=== PATIENT | male | born 1995 | race Caucasian/White ===

== ENCOUNTER 2020-08-20 10:54 | Emergency (ER) | payer OTHER ==
[~2020-08-20 10:54] MED LIST: SKELAXIN800 MG PO
[2020-08-20] MEDS ORDERED: BACTRIM DS TAB1 EACH PO (11:34)
== END 2020-08-20 12:10 | disposition home or self-care (01) ==
LOC: FER 10:54
DX: S61.011A Laceration without foreign body of right thumb without damage to nail, initial encounter (principal); W45.8XXA Other foreign body or object entering through skin, initial encounter; Y92.89 Other specified places as the place of occurrence of the external cause; Y99.0 Civilian activity done for income or pay

== ENCOUNTER 2020-09-01 15:28 | Emergency (ER) | payer OTHER ==
[~2020-09-01 15:28] MED LIST changes: +BACTRIM DS TAB1 EACH PO
== END 2020-09-01 17:16 | disposition home or self-care (01) ==
LOC: FER 15:28
DX: S61.411D Laceration without foreign body of right hand, subsequent encounter (principal); X58.XXXD Exposure to other specified factors, subsequent encounter
CPT/HCPCS: 99281

== ENCOUNTER 2020-12-28 14:27 | Emergency (ER) | payer OTHER ==
[2020-12-28 16:45] LABS: BASOPHIL 0.4 % (0-2); EOSINOPHIL 4.5 % (0-5); HCT 45.3 % (42.0-52.0); HGB 14.9 g/dl (13.2-18.0); LYMPHOCYTE 25.1 % (15-48); MCHC 32.9 g/dL (32.0-36.0); MCV 91.1 fL (78.0-100.0); MONOCYTE 9.3 % (0-12); MPV 8.7 fL (6.0-9.5); NEUTROPHIL 60.3 % (41-80); NRBC 0; PLT 190 K/uL (150-400); RBC 4.97 M/uL (4.70-6.00); RDW 13.6 % (11.5-14.0); WBC 5.6 K/uL (4.0-10.5)
[2020-12-28 17:08] LABS: ALBUMIN 3.7 g/dL (3.4-5.0); BILIRUBIN - TOTAL 0.6 mg/dL (0.2-1.0); BUN/CREAT RATIO (CALC) 9.7 RATIO; CREATININE 0.93 mg/dL (0.67-1.17); GLOBULIN (CALCULATION) 3.1 g/dL; POTASSIUM 4.4 mmol/L (3.5-5.1); TOTAL PROTEIN 6.8 g/dL (6.4-8.2)
[2020-12-28] MEDS ORDERED: MEDROL 4MG DOSEP4 MG PO (18:06)
[2020-12-28] MEDS ORDERED: ZYRTEC10 M3 PO (18:06)
[2020-12-28] MEDS ORDERED: KEFLEX750 MG PO (18:06)
== END 2020-12-28 18:13 | disposition home or self-care (01) ==
LOC: FER 14:27
PROVIDERS: Emergency Medicine
DX: T78.3XXA Angioneurotic edema, initial encounter (principal)
CPT/HCPCS: 36415; 70491; 80053; 85025; 87880; 94640; J1100; Q9967

== ENCOUNTER 2021-05-27 11:50 | Emergency (ER) | payer OTHER ==
[~2021-05-27 11:50] MED LIST changes: +KEFLEX750 MG PO; +MEDROL 4MG DOSEP4 MG PO; +ZYRTEC10 M3 PO
[2021-05-27 13:50] LABS: CORONAVIRUS 2019 SARS-COV-2 NEGATIVE (NEGATIVE); INFLUENZA A NAA NEGATIVE (NEGATIVE)
== END 2021-05-27 14:00 | disposition home or self-care (01) ==
LOC: FER 11:50
PROVIDERS: Nurse Practitioner Family
DX: B34.9 Viral infection, unspecified (principal); F17.290 Nicotine dependence, other tobacco product, uncomplicated; Z20.822 Contact with and (suspected) exposure to COVID-19
CPT/HCPCS: 99283; U0002